=== PATIENT | male | born 2000 | race Caucasian/White ===

== ENCOUNTER 2023-12-11 15:52 | Inpatient (IN) | payer OTHER ==
[~2023-12-11] VITALS: Ht 182.9 cm; Wt 83.2 kg
[2023-12-11] MEDS ORDERED: FINA1TAB12 PO (15:59)
[2023-12-11] MEDS ORDERED: VYVA40CA3 PO (15:59)
[2023-12-11] MEDS ORDERED: PRIS100T PO (15:59)
[2023-12-11 17:05] LABS: BASO # 0.1 10^3/uL (0.0-0.2); BASO % 0.3 % (0.0-1.0); EOS % 0.1 % (0.0-3.0); HEMATOCRIT 41.1 % (42.0-52.0); LYMPH # 1.9 10^3/uL (1.5-5.0); LYMPH % 11.1 % (24.0-44.0); MEAN CORPUSCULAR HEMOGLOBIN 31.8 pg (27.0-33.0); MEAN CORPUSCULAR HGB CONC 36.5 g/dl (32.0-36.5); MEAN CORPUSCULAR VOLUME 87.1 fl (80.0-96.0); MONO # 1.1 10^3/uL (0.0-0.8); MONO % 6.4 % (2.0-8.0); NEUTROPHILS # 13.7 10^3/uL (1.5-8.5); NEUTROPHILS % 81.8 % (36.0-66.0); PLATELET COUNT, AUTOMATED 345 10^3/uL (150-450); RED BLOOD COUNT 4.72 10^6/uL (4.30-6.10); WHITE BLOOD COUNT 16.8 10^3/uL (4.0-10.0)
[2023-12-11 17:14] LABS: ALBUMIN 4.1 G/DL (3.2-5.2); BILIRUBIN,DIRECT 0.3 MG/DL (<0.4); BILIRUBIN,TOTAL 0.8 MG/DL (0.3-1.2); TOTAL PROTEIN 7.5 G/DL (5.7-8.2)
[2023-12-11] MEDS: NS 1,000 ML IV ONE (19:12)
[2023-12-11] MEDS ORDERED: ISOVUE-370 76% 100ML VIAL As Ordered ONE (19:12)
[2023-12-11] MEDS: PIPERACILLIN/TAZOBACTAM SOD 3.375 GM in D5W MINI-BAG PLUS 50 ML IV ONE (20:25)
[2023-12-11] MEDS ORDERED: DESV25TA PO (20:41)
[2023-12-11] MEDS ORDERED: DESV50TA3 PO (20:41)
[2023-12-11] MEDS ORDERED: propofoL 200 MG/20 ML VIAL As Ordered ONE (21:28)
[2023-12-11] MEDS ORDERED: KETOROLAC 60MG 2ML VIAL As Ordered ONE (21:28)
[2023-12-11] MEDS ORDERED: LIDOCAINE 2% 100MG/5ML SDV (FOR ANES.) As Ordered ONE (21:28)
[2023-12-11] MEDS ORDERED: ONDANSETRON 4MG 2ML VIAL As Ordered ONE (21:28)
[2023-12-11] MEDS ORDERED: ROCURONIUM BROMIDE 50MG/5ML VIAL As Ordered ONE (21:28)
[2023-12-11] MEDS ORDERED: fentaNYL 100 MCG/2 ML INJECTION As Ordered ONE (21:29)
[2023-12-11] MEDS ORDERED: SUGAMMADEX SODIUM 500 MG/5 ML VIAL (BRIDION) As Ordered ONE (21:29)
[2023-12-11] MEDS ORDERED: MIDAZOLAM INJ 2MG/2ML VIAL As Ordered ONE (21:29)
[2023-12-11] MEDS ORDERED: THERTAB52 PO (21:31)
[2023-12-11] MEDS ORDERED: TRAZ-252 PO (21:31)
[2023-12-11] MEDS ORDERED: HOME MED LIST COMPLETE! XX SCH (21:35)
[2023-12-11] MEDS ORDERED: ACETAMINOPHEN 1000MG 100ML IV BAG As Ordered ONE (22:24)
[2023-12-11] MEDS ORDERED: NS 1,000 ML IV SCH (23:00)
[2023-12-11] MEDS ORDERED: HYDROMORPHONE HCL 0.5 MG/ 0.5 ML SYRINGE IV PRN (23:00)
[2023-12-11] MEDS ORDERED: ONDANSETRON 4MG 2ML VIAL IV PRN (23:00)
[2023-12-11] MEDS ORDERED: fentaNYL 100 MCG/2 ML INJECTION IV PRN (23:00)
[2023-12-11] MEDS: oxyCODONE 5MG TAB PO PRN (23:39)
[2023-12-11 23:55] VITALS: BP 132/78; TEMP 97.2; O2SAT 97
[2023-12-12] MEDS ORDERED: AUGM500T34 PO (09:07)
[2023-12-12] MEDS ORDERED: HYDR-3713 PO (09:07)
== END 2023-12-11 23:00 | disposition home or self-care (01) | DRG 225 ==
LOC: M ED 15:52 → M ED INP 21:17
PROVIDERS: ADMIT Surgery; ATTEND Surgery
PROC: 0DTJ4ZZ Resection of Appendix, Percutaneous Endoscopic Approach (ICD-10-PCS; principal; 2023-12-11 20:14)
DX: K35.80 Unspecified acute appendicitis (principal); F31.9 Bipolar disorder, unspecified; F41.9 Anxiety disorder, unspecified; Z79.899 Other long term (current) drug therapy; Z11.52 Encounter for screening for COVID-19

== ENCOUNTER 2024-06-22 17:34 | Emergency (ER) | payer OTHER, SELFPAY ==
[~2024-06-22] VITALS: Ht 185.4 cm; Wt 94.0 kg
[~2024-06-22 17:34] MED LIST: AUGM500T34 PO; DESV25TA PO; DESV50TA3 PO; FINA1TAB4 PO; HYDR-3713 PO; PRIS100T PO; THERTAB52 PO; TRAZ-252 PO; VYVA40CA3 PO
[2024-06-22 18:27] LABS: BASO % 0.3 % (0.0-1.0); EOS % 0.1 % (0.0-3.0); HEMATOCRIT 41.5 % (42.0-52.0); HEMOGLOBIN 14.6 g/dl (13.5-17.5); LYMPH # 1.6 10^3/uL (1.5-5.0); MEAN CORPUSCULAR HEMOGLOBIN 30.9 pg (27.0-33.0); MEAN CORPUSCULAR HGB CONC 35.2 g/dl (32.0-36.5); MEAN CORPUSCULAR VOLUME 87.7 fl (80.0-96.0); MONO # 0.8 10^3/uL (0.0-0.8); MONO % 6.4 % (2.0-8.0); NEUTROPHILS # 9.5 10^3/uL (1.5-8.5); NEUTROPHILS % 79.9 % (36.0-66.0); PLATELET COUNT, AUTOMATED 353 10^3/uL (150-450); RED BLOOD COUNT 4.73 10^6/uL (4.30-6.10); WHITE BLOOD COUNT 11.9 10^3/uL (4.0-10.0)
[2024-06-22 18:49] LABS: BLOOD UREA NITROGEN 11 MG/DL (9-23); CALCIUM LEVEL 9.7 MG/DL (8.5-10.1); CARBON DIOXIDE LEVEL 21 MMOL/L (20-31); CHLORIDE LEVEL 108 MMOL/L (98-107); CK-MB VALUE MASS < 1.0 NG/ML (<3.6); CPK CREATINE PHOSPHOKINASE 71 U/L (46-171); CREATININE FOR GFR 0.77 MG/DL (0.70-1.30); GLOMERULAR FILTRATION RATE > 60.0 (>60); GLUCOSE, FASTING 95 MG/DL (60-100); POTASSIUM SERUM 3.8 MMOL/L (3.5-5.1); SODIUM LEVEL 137 MMOL/L (136-145)
[2024-06-22 20:23] LABS: CK-MB VALUE MASS < 1.0 NG/ML (<3.6)
[2024-06-22 20:24] LABS: CPK CREATINE PHOSPHOKINASE 71 U/L (46-171)
[2024-06-22 20:39] LABS: MAGNESIUM LEVEL 1.9 MG/DL (1.8-2.4)
[2024-06-22 20:43] LABS: FREE T4 1.28 NG/DL (0.89-1.76)
[2024-06-22 20:44] LABS: THYROID STIMULATING HORMONE 0.957 uIU/ML (0.55-4.78)
[2024-06-22 21:36] VITALS: BP 136/87; TEMP 98.6; O2SAT 97
== END 2024-06-22 21:46 | disposition home or self-care (01) ==
LOC: M ED 17:34
DX: R00.2 Palpitations (principal); F31.9 Bipolar disorder, unspecified; F41.9 Anxiety disorder, unspecified; Z79.899 Other long term (current) drug therapy